=== PATIENT | female | born 1990 | race Two or more races ===

== ENCOUNTER 2024-02-14 20:40 | Emergency (ER) | payer OTHER ==
[2024-02-14 20:48] VITALS: RESP 18; BMI 24.5
[2024-02-14 22:05] LABS: BASO % 0.3 % (0-2.0); EOS % 0.3 % (0-4.5); HEMATOCRIT 36.3 % (32.4-45.2); MCH 26.9 pg (25.7-33.7); MCHC 33.1 g/dl (32.0-36.0); MEAN CELL VOLUME 81.4 fl (80-96); MEAN PLT VOLUME 7.5 fl (7.5-11.1); MONO % 6.8 % (3.8-10.2); NEUT % 78.6 % (42.8-82.8); PLATELET COUNT 323 10^3/uL (134-434); RBC 4.47 M/mm3 (3.60-5.2); RDW 13.7 % (11.6-15.6); WHITE BLOOD COUNT 8.6 K/mm3 (4.0-10.0)
[2024-02-14 22:14] LABS: INR 1.06 (0.83-1.09); PROTHROMBIN TIME (PATIENT) 12.3 SEC (9.7-13.0)
[2024-02-14 22:16] LABS: POTASSIUM 4.1 mmol/L (3.5-5.1)
[2024-02-14 22:17] LABS: ACTIVATED PTT 30.5 SECONDS (25.2-36.5)
[2024-02-14 22:18] LABS: CALCIUM 8.9 mg/dL (8.5-10.1)
[2024-02-14 22:19] LABS: ALBUMIN 4.1 g/dl (3.4-5.0); BLOOD UREA NITROGEN 6.5 mg/dL (7-18); MAGNESIUM 2.1 mg/dL (1.8-2.4)
[2024-02-14 22:22] LABS: CREATININE 0.5 mg/dL (0.55-1.3)
[2024-02-14 22:23] LABS: TOT PROT 8.1 g/dl (6.4-8.2)
[2024-02-14 22:24] LABS: BILIRUBIN,TOTAL 0.2 mg/dL (0.2-1)
[2024-02-14] MEDS ORDERED: KETOROLAC TROMETHAMINE 15 MG/ML VIAL ONE (22:46)
[2024-02-14] MEDS ORDERED: ACETAMINOPHEN 325 MG TABLET (FP) ONE (22:46)
[2024-02-14] MEDS: KETOROLAC TROMETHAMINE 30 MG/1 ML VIAL IVPUSH ONE (22:50)
[2024-02-14] MEDS: ACETAMINOPHEN 325 MG TABLET (FP) PO ONE (22:50)
[2024-02-14 23:50] VITALS: BP 120/76; PULSE 78; TEMP 98.2
== END 2024-02-14 23:50 | disposition home or self-care (01) ==
LOC: JER 20:40
DX: R07.89 Other chest pain (principal); M54.6 Pain in thoracic spine
CPT/HCPCS: 36415; 71046-TC-FY; 80053; 83735; 84484; 84703; 85025; 85379; 85610; 85730; 93005; 93010; 99285-25